=== PATIENT | male | born 1960 | race Caucasian/White ===

== ENCOUNTER 2020-11-15 17:32 | Observation (INO) | payer BC, SELFPAY ==
[2020-11-15] VITALS (15 sets, daily range): BP systolic 137–176; BP diastolic 85–98; PULSE 73–92; RESP 11–20; TEMP 36.4; O2SAT 96–100
--- NOTE | ~2020-11-15 | CT_ITS ---
EXAMINATION: CT brain wo con EXAM DATE: 11/15/2020 18:43 INDICATION: Dizziness, left-sided paresthesia. Vomiting. TECHNIQUE: Spiral CT of the head was performed without contrast. Axial, coronal and sagittal images were reviewed. The dose-length product (DLP) for this examination was 605.33 mGy-cm. The exposure w as tailored according to patient size, and iterative reconstruction (ASIR) was used as additional dos e reduction technique. There is no prior study for comparison. 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 There is no ac native intraparenchymal hemorrhage. No evidence of intraparenchymal brain mass lesion. No evidence of acute infarction. There is no mass effect or midline shift. The ventricles are normal in size. The re are no extra-axial collections. There are no acute calvarial fractures. The orbits are unremarkab le. Soft tissue is unremarkable. Mild bilateral ethmoid mucoperiosteal thickening. IMPRESSION: 1. No acute intracranial findings. 2. Mild microangiopathy. Reviewed, dictated and finalized at location A.
--- NOTE | ~2020-11-15 | XR_ITS ---
EXAMINATION: XR chest 1V portable EXAM DATE: 11/15/2020 18:31 INDICATION: Dizziness, nausea. TECHNIQUE: Portable AP frontal chest x-ray was obtained. Comparison is made to prior examination from 11/15/2020. FINDINGS: The cardiac silhouette is enlarged. There is pulmonary vascular congestion. No confluent co nsolidation, pneumothorax or pleural effusion suspected. There are no osseous abnormalities identifie d. IMPRESSION: 1. Cardiomegaly, congestion. Reviewed, dictated and finalized at location A.
--- NOTE | 2020-11-15 17:54 | ECG_ITS ---
Measurements Intervals [place] Rate: 91 P: 63 WV: 134 QRS: -1 QRSD: 99 T: 61 QT: 382 QTc: 472 Interpretive Statements SINUS RHYTHM POSSIBLE LEFT ATRIAL ENLARGEMENT LEFT VENTRICULAR HYPERTROPHY NONSPECIFIC ST ELEVATION IN ANTERIOR LEADS BASELINE ARTIFACT- I, II, III, AVR, AVF, V1-V6 BORDERLINE ECG Electronically Signed On 11-16-2020 6:19:41 CDT by Dami Cruz D.O.
--- NOTE | 2020-11-15 18:01 | ED.GENADULT ---
HPI - General Adult General Chief complaint: Dizziness Stated complaint: weakness Time Seen by Provider: 11/15/20 17:35 Source: patient History of Present Illness HPI narrative: Patient is 59 y/o male complaining of dizziness starting about 4:45 PM today. He describes his dizziness as a light-headedness. There is no alleviating or exacerbating factor. He states that he was driving home from work when this happened. He also had some facial pain and cough when he first woke up this morning. He was feeling worse around 3:30 PM today and left work early. He states that he has some tingling in his left hand both feet. He also had several episodes of vomiting. He denies any abdominal pain, or diarrhea. Related Data Home Medications Medication Instructions Recorded Confirmed amlodipine 10 mg PO DAILY 03/25/19 03/25/19 olmesartan-hydrochlorothiazide 1 tablet DAILY 03/25/19 03/25/19 Allergies Allergy/AdvReac Type Severity Reaction Status Date / Time No Known Allergies Allergy Verified 11/15/20 17:42 Review of Systems Review of Systems: All systems reviewed & are unremarkable except as noted in HPI and below Constitutional: Constitutional: Denies chills, Denies fever(s), Reports headache(s) and Denies weakness Eyes: Eyes: Denies blurry vision ENT: Reports headache(s) and Denies neck pain Cardiovascular: Cardiovascular: Denies chest pain and Denies dyspnea Respiratory: Respiratory: Reports cough and Denies dyspnea Gastrointestinal: Gastrointestinal: Denies abdominal pain, Denies diarrhea, Reports nausea and Reports vomiting Genitourinary: Genitourinary: Denies hematuria and Denies dysuria Musculoskeletal: Musculoskeletal: Denies back pain and Denies neck pain Neurologic: Reports dizziness, Reports headache(s), Reports paresthesias and Denies weakness Exam Const: General: no acute distress and well developed Orientation/consciousness: oriented to person, oriented to place, oriented to time and patient oriented x3 HENMT: Head: normocephalic Ears: external ears normal General nose exam: Normal external nose present Eyes: General: appearance normal, both eyes and all related structures Conjunctivae: conjunctivae normal Neck: Neck: normal visual inspection and full ROM Chest: Chest palpation & inspection: normal inspection of the chest and no tenderness Resp: Effort & Inspection: normal respiratory effort Auscultation: clear to auscultation bilaterally Cardio: Rate: regular rate Rhythm: regular rhythm GI: GI Palp: No abdominal tenderness and Yes Soft to palpation Skin: General skin exam: normal color and turgor normal Neuro: General: oriented to person, oriented to place, oriented to time and patient oriented x3 Cranial nerves: Yes CN's II-XII intact bilaterally Cognition (Neuro): normal cognition Speech: normal speech Motor exam (neuro): 5/5 motor strength present throughout Sensory Exam: normal sensation Coordination: [id number] test normal and [id number] test normal Extrem: General: normal to inspection, full ROM and no pedal edema Psych: Appearance: grossly normal Mental Status: mental status grossly normal Affect: Anxious affect present Course Consultations Consultation #1: Discussed with Dr. Sanders, who agrees to admit. Date: 11/15/20 Time: 22:52 Vital Signs Vital signs: Vital Signs Temperature 36.4 C L 11/15/20 17:36 Pulse Rate 92 11/15/20 17:36 Respiratory Rate 20 11/15/20 17:36 Blood Pressure 168/91 H 11/15/20 17:36 Pulse Oximetry 100 11/15/20 17:36 Temperature 36.4 C L 11/15/20 17:36 Pulse Rate 69 11/16/20 00:32 Respiratory Rate 14 11/16/20 00:32 Blood Pressure 169/99 H 11/16/20 00:32 Pulse Oximetry 98 11/16/20 00:32 Medical Decision Making MDM Narrative Medical decision making narrative: Stroke is considered as possible cause of dizziness. However, patient is not a candidate for tPA in case of stroke because minor symptom with NIHSS of 0. V
[2020-11-15] MEDS: ONDANSETRON INJ 4 MG/2 ML VIAL IV PUSH (18:05)
[2020-11-15] MEDS: SODIUM CHLORIDE 0.9% IV 1,000 ML 999 ML IV CONT (18:05)
[2020-11-15] MEDS: LORazepam INJ (*CRX) 2 MG/ML VIAL 0.5 MG IV PUSH (18:10)
[2020-11-15 18:44] LABS: Basophils Percent Auto 0.1 % (0.2-1.2); Eosinophils Percent Auto 0.4 % (0-4.4); Hematocrit 40.2 % (42.0-52.0); Hemoglobin 13.6 g/dL (14.0-18.0); Immature Granulocyte Absolute 0.02 K/mm3 (0.00-0.031); Immature Granulocyte Percent A 0.3 % (0-0.5); Lymphocytes Absolute Auto 1.49 K/mm3 (0.9-3.2); Lymphocytes Percent Auto 21.7 % (18.3-44.2); Mean Corpuscular HGB Conc 33.8 g/dl (32-36); Mean Corpuscular Hemoglobin 31.3 pg (26-34); Mean Corpuscular Volume 92.4 fl (80-100); Mean Platelet Volume 11.1 fl (7.4-10.4); Monocytes Absolute Auto 0.7 K/mm3 (0.1-0.6); Monocytes Percent Auto 9.6 % (2.6-8.5); Neutrophils Absolute Auto 4.7 K/mm3 (1.3-6.7); Neutrophils Percent Auto 67.9 % (45.5-73.1); Platelet Count Result 265 k/mm3 (150-375); Red Blood Count 4.35 M/mm3 (4.6-6.20); Red Cell Distribution Width 12.9 % (11.5-14.5); White Blood Count 6.9 K/mm3 (4.5-10.0)
[2020-11-15 18:59] LABS: Alanine Aminotransferase 21 U/L (4-50); Albumin Level 4.7 g/dL (3.5-5.1); Alkaline Phosphatase 81 U/L (38-126); Anion Gap 14 mmol/L (8-16); Aspartate Amino Transferase 34 U/L (17-59); Bilirubin,Total 0.8 mg/dL (0.2-1.3); Blood Urea Nitrogen 11 mg/dL (9-20); Calcium 9.7 mg/dL (8.4-10.2); Carbon Dioxide 21 mmol/L (22-30); Chloride 101 mmol/L (98-107); Creatine Kinase 246 U/L (55-170); Estimated CRCL calculation 60 ml/min; Estimated Glomerular Filt Rate > 60; Glucose 135 mg/dL (75-110); Potassium 2.7 mmol/L (3.4-5.0); Sodium 136 mmol/L (137-145)
[2020-11-15 19:05] LABS: Troponin I < 0.012 ng/mL (0.000-0.034)
[2020-11-15] MEDS: POTASSIUM CHLORIDE 20 MEQ TABLET 40 MEQ PO (19:38)
--- NOTE | 2020-11-15 19:42 | PC.NURSE ---
asked pt for urine sample and gave him specimen cup. pt states he will try.
[2020-11-15 20:05] LABS: NT Pro B Type Natriuretic Pept 245 pg/mL (5-100)
[2020-11-15 20:17] LABS: Add Urine Microscopic? YES; Appearance Urine Clear (Clear); Bilirubin Urine Negative (Negative); Blood Urine 1+ (Negative); Color Urine Yellow (Yellow); Glucose Urine UA 1+ mg/dL (Negative); Ketones Urine 1+ mg/dL (Negative); Leukocyte Esterase Ur Negative LEU/UL (Negative); Mucus Urine Rare /lpf; Nitrate Urine Negative (Negative); Protein Urine Negative (Negative); Specific Grav Ur 1.016 (1.001-1.035); Urobilinogen Urine Negative mg/dL (<2.0); WBC Urine 0-3 /hpf
[2020-11-15 21:20] LABS: Troponin I < 0.012 ng/mL (0.000-0.034)
[2020-11-15] MEDS: MECLIZINE HCL 25 MG TABLET PO (21:49)
[2020-11-15] MEDS: KETOROLAC 30 MG/ML VIAL (*BKC) IV PUSH (22:22)
[2020-11-15 23:17] LABS: Magnesium 1.7 mg/dL (1.6-2.3)
[2020-11-16] VITALS (9 sets, daily range): BP systolic 156–169; BP diastolic 88–99; PULSE 63–75; RESP 14–18; TEMP 36.4–36.7; O2SAT 97–98; BMI 22.8
--- NOTE | 2020-11-16 00:22 | PC.NURSE ---
Report to [facility] on 3 med/surg. Pt admitted to room 317 on tele.
--- NOTE | 2020-11-16 00:37 | ADMGEN ---
This patient, Tree Bañuelos, was admitted to 3 [facility] Surg Room 317-01. Patient/family oriented to hospital policies and general routines including ID bracelet, bed and alarms, visiting hours, pain management, procedures, bathroom and other care routines, personal items, smoking policy, room service/diet, and visiting hours. Information on how to activate the Rapid Response Team has been discussed. Patient/Family are encouraged to report perceived risks to care and to ask questions if they do not understand what they are told or what they should do.
--- NOTE | 2020-11-16 00:38 | PC.NURSE ---
Pt transported to [facility] by this RN with tele monitor via stretcher. all belongings with pt. pt able to ambulate from stretcher to inpatient bed without difficulty/assistance and denied dizziness at that time.
[2020-11-16 01:00] LABS: Troponin I < 0.012 ng/mL (0.000-0.034)
[2020-11-16] MEDS: MAGNESIUM SULF 2 GM/WATER 50ML 2 GM/50 ML BAG IVPB ×2 (02:52→09:30)
[2020-11-16 06:19] LABS: Hematocrit 38.9 % (42.0-52.0); Hemoglobin 12.6 g/dL (14.0-18.0); Mean Corpuscular HGB Conc 32.4 g/dl (32-36); Mean Corpuscular Hemoglobin 30.9 pg (26-34); Mean Corpuscular Volume 95.3 fl (80-100); Mean Platelet Volume 10.2 fl (7.4-10.4); Platelet Count Result 220 k/mm3 (150-375); Red Blood Count 4.08 M/mm3 (4.6-6.20); White Blood Count 5.9 K/mm3 (4.5-10.0)
[2020-11-16 06:34] LABS: Anion Gap 6 mmol/L (8-16); Blood Urea Nitrogen 11 mg/dL (9-20); Calcium 8.8 mg/dL (8.4-10.2); Carbon Dioxide 25 mmol/L (22-30); Chloride 106 mmol/L (98-107); Estimated CRCL calculation 65 ml/min; Estimated Glomerular Filt Rate > 60; Glucose 99 mg/dL (75-110); Potassium 3.5 mmol/L (3.4-5.0); Sodium 137 mmol/L (137-145)
[2020-11-16] MEDS: POTASSIUM CHLORIDE 20 MEQ TABLET PO (09:30)
--- NOTE | 2020-11-16 17:05 | PM.SD2 ---
Same Day Admit/Disch: [facility] History of Present Illness Chief complaint: dizziness, hypokalemia Narrative: Date of admission: 11/15/2020 date of discharge: 11/16/2020 Tree Bañuelos is a 59 year old male with a history of hypertension and vertigo who presented to the emergency department on 11/15/2020 with several complaints. He noted that yesterday he woke and had sinus congestion and drainage that did not improve with Zyrtec. He went to work later that day and throughout the day had worsened sinus pressure and developed sneeze and cough. Throughout the day his symptoms worsened and he was having more difficulty breathing due to congestion. He also had an episode of loose, brown stool. Later that day when he was driving home, his congestion worsened and he developed facial pain. On his drive home, he felt lightheaded with tingling in his left hand and foot. When he got home he had approximately 4 episodes of bilious emesis. He denied dizziness. He never lost consciousness. He denied weakness, headache, confusion, speech changes, or visual changes. He did not have any chest pain associated with this episode. Of note, he indicated that over the past few days he had not had anything to drink besides soda and the prior 2 days he had been working outside in the heat. he felt that on Saturday night prior to his presentation, he became quite overheated. Upon presentation to the emergency department, his blood pressure was elevated at 168/91 with additional vital signs stable, he was afebrile, H&H slightly decreased with additional CBC unremarkable, sodium 136, potassium 2.7, bicarb 21, magnesium 1.7, additional electrolytes within normal limits, troponin negative, CK slightly elevated at 246, CXR showed cardiomegaly with pulmonary congestion, and head CT showed no acute findings. On my initial encounter, his symptoms had resolved entirely. His only persisting symptom was sinus congestion with very mild facial pain over the maxillary and frontal sinuses. He was admitted to the hospitalist service for observation. Supervising physician for this history and physical is Dr. Alex Erazo. [facility] Past Medical History Medical History (Updated 11/16/20 @ 17:16 by Luz Marina Cabrera PA-C) Essential hypertension Vertigo Surgical History Surgical History (Updated 11/16/20 @ 17:16 by Luz Marina Cabrera PA-C) Hx of appendectomy Family History Family History (Updated 11/16/20 @ 17:16 by Luz Marina Cabrera PA-C) Father FH: brain cancer Mother Hypertension Colorectal carcinoma Sibling Acute myocardial infarction Oropharyngeal cancer Sibling Pancreatic adenocarcinoma Social History Social History (Updated 11/16/20 @ 17:18 by Luz Marina Cabrera PA-C) Social History: Mr. Bañuelos lives at home with his girlfriend. His primary care provider is Dr. Rodriguez. He works as a restaurant supervisor. He would like to be a full code. He designates his girlfriend, Malu, as his surrogate decision maker. Smoking status: Never smoker Second hand tobacco smoke exposure: No Alcohol intake: current Drinks per week: 10 Substance use: current Other substance usage details: smokes marijuana occasionally, 4-5x/year Gender identity (if verbalized by the patient): Male Spiritual care concerns: No Same Day Admit/Disch: Med Pre-admit Medications Home Medications Medication Instructions Recorded Confirmed Type amlodipine 10 mg PO DAILY 03/25/19 11/16/20 History olmesartan-hydrochlorothiazide 1 tablet DAILY 03/25/19 11/16/20 History fluticasone propionate 1 spray INTRANASAL Q12H #16 g 11/16/20 Rx guaifenesin 600 mg PO Q12H PRN #20 tablet 11/16/20 Rx loratadine [Claritin] 10 mg PO DAILY #20 tablet 11/16/20 Rx Exam Narrative: Exam Narrative: Mr. Bañuelos is a well-nourished, well-appearing 59-year-old male who is lying semi recumbent in bed. he appears comfortable and is in NARD. Neuro: awake, alert and orie
[2020-11-16 17:46] LABS: SARS-CoV-2 RNA PCR Negative
== END 2020-11-16 15:00 | disposition home or self-care (01) ==
LOC: ANHED 18:29 → ANH3MEDSUR 23:30
PROVIDERS: Admitting Provider Internal Medicine; Emergency Provider Emergency Medicine; PCP Internal Medicine; Visit Provider Internal Medicine
DX: R42 Dizziness and giddiness (principal); E87.6 Hypokalemia; E86.0 Dehydration; E87.8 Other disorders of electrolyte and fluid balance, not elsewhere classified; F43.9 Reaction to severe stress, unspecified; I11.9 Hypertensive heart disease without heart failure; R20.2 Paresthesia of skin; R09.81 Nasal congestion; Z20.822 Contact with and (suspected) exposure to COVID-19
CPT/HCPCS: 36415; 70450; 71045; 80048; 80053; 81001; 82550; 83735; 83880; 84484; 85025; 85027; 93005; 96361; 96374; 96375; 96376; 99285; A9270; C9803; G0378; J1885; J2060; J2405; J3475; J7030; U0003; U0005

== ENCOUNTER 2020-12-06 08:01 | Outpatient (CLI) | payer BC, SELFPAY ==
--- NOTE | ~2020-12-06 | MR_ITS ---
EXAMINATION: MR brain/brain stem wo/w con EXAM DATE: 12/06/2020 09:05 INDICATION: Cerebral infarction. Dizziness. Lightheadedness. TECHNIQUE: Magnetic resonance imaging (MRI) of the brain/brain stem obtained without contrast. Sagit berry T1, axial diffusion, gradient echo (T2*), T1, T2, FLAIR sequences obtained. Patient was then inj ected with 15 cc intravenous Multihance contrast. Axial and coronal postcontrast T1 weighted sequence s obtained. There is no prior study for comparison. FINDINGS: There are no areas of restricted diffusion to suggest acute infarction. There is no acute hemorrhage seen on the T2*, a hemosiderin sensitive sequence. No intraparenchymal brain mass lesion. There is mild periventricular and subcortical T2/FLAIR signal hyperintensity, nonspecific but probab ly related to small vessel ischemic disease (microangiopathy). There are no extra-axial collections . Flow voids are seen in the cerebral arteries on the T2-weighted sequences consistent with their ex pected patency. The orbits are unremarkable. Soft tissue is unremarkable. There are no areas of ab normal enhancement on the postcontrast images. IMPRESSION: Mild microangiopathy. Otherwise unremarkable exam. Reviewed, dictated and finalized at location A.
== END 2020-12-06 08:02 | disposition home or self-care (01) ==
LOC: ANHIMG 08:07
PROVIDERS: PCP Internal Medicine; Visit Provider Internal Medicine
DX: I63.9 Cerebral infarction, unspecified (principal); R93.0 Abnormal findings on diagnostic imaging of skull and head, not elsewhere classified
CPT/HCPCS: 70553; A9577

== ENCOUNTER 2020-12-15 09:37 | Outpatient (CLI) | payer BC, SELFPAY ==
--- NOTE | ~2020-12-15 | US_ITS ---
EXAMINATION: US carotid duplex BI DATE: 12/15/2020 10:08 INDICATION: Cerebral infarction TECHNIQUE: Grayscale, color Doppler, and pulsed Doppler images of the cervical carotid arteries were obtained. The degree of vessel stenosis is placed in one of the following categories: normal, <50%, 5 0-69%, >=70% but less than near-occlusion, near-occlusion, or total occlusion. Note that percent sten osis relative to normal distal artery lumen diameter is indirectly measured from velocity measurement s as described by Duy, et al. Radiology 2003; 229:340-346. Notes: Normal: Peak systolic velocity <125 centimeters/sec and no plaque <50%. Peak systolic velocity <125 ( EDV <40; ICA/CCA PSV ratio <2.0; used these factors only a tandem lesions or low cardiac output or co ntralateral disease) 50-69 %: PSV 125-230 (EDV 40-100; ratio 2-4) >= 70% but less than near occlusion: PSV greater than 230 (EDV > 100; ratio> 4.0) Near Occlusion: PSV that is variable; markedly narrowed lumen Occlusion: Absent flow on color/spectral Doppler and no lumen on olivares scale. COMPARISON: None. FINDINGS: RIGHT: The right common carotid artery (CCA) peak systolic velocity (PSV) is 121 cm/s. The right internal ca rotid artery (ICA) PSV is 75 cm/s. The right ICA end-diastolic velocity (EDV) is 12 cm/s. The right I CA/CCA PSV ratio is 0.6. The external carotid artery (ECA) PSV is 103 cm/s. There is antegrade flow i n the right vertebral artery. LEFT: The left CCA PSV is 133 cm/s. The left ICA PSV is 68 cm/s. The left ICA EDV is 21 cm/s. The left ICA/ CCA PSV ratio is 0.5. The ECA PSV is 70 cm/s. There is antegrade flow in the left vertebral artery. IMPRESSION: 1. Less than 50% stenosis in the right internal carotid artery by sonographic criteria. 2. Less than 50% stenosis in the left internal carotid artery by sonographic criteria. Reviewed, dictated and finalized at location A. IMPRESSION: 1. Less than 50% stenosis in the right internal carotid artery by sonographic filipe moya. 2. Less than 50% stenosis in the left internal carotid artery by sonographic bertha montiel.
== END 2020-12-15 09:38 | disposition home or self-care (01) ==
LOC: ANHIMG 09:39
PROVIDERS: PCP Internal Medicine; Visit Provider Internal Medicine
DX: I63.9 Cerebral infarction, unspecified (principal); I65.23 Occlusion and stenosis of bilateral carotid arteries
CPT/HCPCS: 93880

== ENCOUNTER 2023-05-18 16:40 | Emergency (ER) | payer OTHER, SELFPAY ==
[2023-05-18 16:53] VITALS: BP 97/65; PULSE 110; RESP 18; TEMP 37.1; O2SAT 97
--- NOTE | 2023-05-18 17:33 | ED.URI ---
HPI - URI/Sore Throat General Chief Complaint: Upper Respiratory Infection Stated Complaint: COVID+ Time Seen by Provider: 05/18/23 17:24 Source: patient and RN notes reviewed Mode of arrival: ambulatory Limitations: no limitations History of Present Illness HPI Narrative: Patient presents today complaining of body aches and chills that started today. Denies fever, cough, or any additional symptoms. He tested positive for COVID today at home. Today's his last day of a course of Augmentin for bilateral otitis media. He took a dose of DayQuil today with mild relief of symptoms. Related Data Home Medications Medication Instructions Recorded Confirmed amlodipine 10 mg tablet 10 mg PO DAILY 03/25/19 05/18/23 olmesartan 40 1 tablet DAILY 03/25/19 05/18/23 mg-hydrochlorothiazide 25 mg tablet ergocalciferol (vitamin D2) 1,250 1,250 mcg PO WEEKLY 05/18/23 05/18/23 mcg (50,000 unit) capsule rosuvastatin 40 mg tablet 40 mg PO DAILY 05/18/23 05/18/23 Allergies Allergy/AdvReac Type Severity Reaction Status Date / Time No Known Allergies Allergy Verified 05/18/23 16:55 Review of Systems Review of Systems: CONSTITUTIONAL: Denies fever, or sweats.+ body aches, chills EYES: Denies visual changes, redness, or discharge. ENT: Denies rhinorrhea, congestion, sore throat, or otalgia. CARDIOVASCULAR: Denies chest pain, palpitations, or edema. RESPIRATORY: Denies cough or dyspnea. GASTROINTESTINAL: Denies abdominal pain, nausea, vomiting, or diarrhea. GENITOURINARY: Denies dysuria or hematuria. SKIN: Denies rash, itching, or wounds. MUSCULOSKELETAL: Denies back pain, joint pain, or myalgia. NEUROLOGIC: Denies headache, numbness, tingling, or weakness. PSYCH: Denies depression or anxiety. [facility] Past Medical History Medical History Essential hypertension Vertigo Surgical History Surgical History Hx of appendectomy Family History Family History Father FH: brain cancer Mother Hypertension Colorectal carcinoma Sibling Acute myocardial infarction Oropharyngeal cancer Sibling Pancreatic adenocarcinoma Social History Social History Social History: Mr. Bañuelos lives at home with his girlfriend. His primary care provider is Dr. Rodriguez. 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 He designates his girlfriend, Malu, as his surrogate decision maker. Smoking status: Never smoker Second hand tobacco smoke exposure: No Alcohol intake: current Drinks per week: 10 Substance use: current Other substance usage details: smokes marijuana occasionally, 4-5x/year Gender identity (if verbalized by the patient): Male Spiritual care concerns: No Comments At time of signature, I have reviewed and agree with nursing past medical, surgical, social and family history unless otherwise noted. Please see nursing chart for further information. There is no relevant family history pertinent to the presenting complaint Exam Narrative: GENERAL: Well-appearing, well-nourished, and in no acute distress. HEAD: Normocephalic, atraumatic. EYES: EOMI. No redness or drainage. Conjunctivae normal. ENT: Mucous membranes pink and moist. Nares clear. No rhinorrhea. TMs normal bilaterally. Throat normal. Uvula midline. NECK: Normal AROM. Supple. No lymphadenopathy. CHEST: No respiratory distress. Clear to auscultation. HEART: Regular rate and rhythm. No murmur appreciated. EXTREMITIES: Normal range of motion. No edema. SKIN: Warm, dry, no rash. Capillary refill normal. Normal skin turgor. NEURO: No focal deficits. Alert and oriented x3. Gait steady. PSYCH: Normal affect. No signs of depression or anxiety. Course Course Level of Care: Express Car
== END 2023-05-18 17:34 | disposition home or self-care (01) ==
PROVIDERS: Emergency Provider Nurse Practitioner; PCP Internal Medicine
DX: U07.1 COVID-19 (principal); I10 Essential (primary) hypertension
CPT/HCPCS: 99211; G0463